=== PATIENT | female | born 1980 | race Caucasian/White ===

== ENCOUNTER 2018-11-27 19:12 | Emergency (ER) | payer BC ==
[~2018-11-27] VITALS: Ht 160 cm; Wt 74.8 kg
[2018-11-27 20:00] VITALS: BP 157/115
[2018-11-27] MEDS ORDERED: DIPHTH,PERTUSS(ACELL),TET TOX 0.5 ML DISP.SYRIN. VAX IM ONE (20:45)
[2018-11-27] MEDS ORDERED: LIDOCAINE WITH 8.4% SOD BICARB 3 ML DISP.SYRIN. ONE (20:45)
--- NOTE | 2018-11-27 21:18 | RAD ---
EXAM: Left index finger, 3 views. HISTORY: Laceration. COMPARISON: None. FINDINGS: 3 views of the left index finger are obtained. There is soft tissue swelling. There is no radiodense foreign body. No fracture is seen. IMPRESSION: No acute osseous finding or radiodense foreign body. Electronically signed by: Selina Belle MD (11/27/2018 9:15 PM) [facility]
[2018-11-27] MEDS ORDERED: HYDR-3164 PO (21:46)
--- NOTE | 2018-11-27 21:46 | PHYS DOC ---
Past Medical History Past Medical History: No Pertinent History (CELESTE AGUILERA) Past Surgical History: Hysterectomy (CELESTE AGUILERA) Alcohol Use: None Drug Use: None (CELESTE AGUILERA) Adult General Chief Complaint Chief Complaint: LACERATION/AVULSION HPI HPI Patient is a 38 year old F who is here with a L index finger laceration from an electric ang she was using at home. The finger is wrapped in a papertowel and bleeding is controlled. Pt is not sure when her last tetanus was administered. (CELESTE AGUILERA) Review of Systems Review of Systems Constitutional: Denies fever or chills [] Respiratory: Denies cough or shortness of breath [] Cardiovascular: Denies chest pain GI: Denies abdominal pain, nausea, vomiting, bloody stools or diarrhea [] Musculoskeletal: Denies back pain or joint pain. Reports finger pain. Integument: Denies rash. Reports laceration Neurologic: Denies headache, focal weakness or sensory change All other systems were reviewed and found to be within normal limits, except as documented in this note. (CELESTE AGUILERA) Current Medications Current Medications Current Medications Medications (Trade) Dose Ordered Sig/Missy Start Time Stop Time Status Last Admin Dose Admin Diphtheria/ Tetanus/Acell Pertussis (Boostrix) 0.5 ml ONCE ONCE 11/27/18 20:45 11/27/18 20:47 DC 11/27/18 21:05 0.5 ML Lidocaine/Sodium Bicarbonate (Buffered Lidocaine 1%) 3 ml STK-MED ONCE 11/27/18 20:45 11/27/18 20:46 DC (YANIV PALMER DO) Allergies Allergies Allergies Coded Allergies Type Severity Reaction Last Updated Verified cefaclor Allergy Intermediate Rash 11/27/18 Yes (YANIV PALMER DO) Physical Exam Physical Exam Constitutional: Well developed, well nourished, no acute distress, non-toxic appearance. [] Neck: Normal range of motion, no tenderness, supple, no stridor. [] Cardiovascular:Heart rate regular rhythm, no murmur [] Lungs & Thorax: Bilateral breath sounds clear to auscultation [] Abdomen: Bowel sounds normal, soft, no tenderness, no masses, no pulsatile masses. [] Skin: L index finger palmar side laceration, 3 cm Back: No tenderness, no CVA tenderness. [] Extremities: No cyanosis, no clubbing, ROM intact, no edema. L index finger pain, full range of motion, sensation intact. Neurologic: Alert and oriented X 3, normal motor function, normal sensory function, no focal deficits noted. [] Psychologic: Affect normal, judgement normal, mood normal. [] (CELESTE AGUILERA) Current Patient Data Vital Signs Vital Signs Date Time Temp Pulse Resp B/P (MAP) Pulse Ox O2 Delivery O2 Flow Rate FiO2 11/27/18 20:00 97.7 110 20 157/115 (129) 100 Room Air 97.7 (YANIV PALMER DO) EKG EKG [] (CELESTE AGUILERA) Radiology/Procedures Radiology/Procedures Xray neg for acute osseous injury or FB (CELESTE AGUILERA) Course & Med Decision Making Course & Med Decision Making Pertinent Labs and Imaging studies reviewed. (See chart for details) Pt tolerated suture repair well. Finger then dressed with nonstick dressing and alumifoam splint with coban wrap. Tetanus updated. Sutures out in 7-10 days. (CELESTE AGUILERA) Dragon Disclaimer Dragon Disclaimer This electronic medical record was generated, in whole or in part, using a voice recognition dictation system. (CELESTE AGUILERA) Laceration Repair Lac Repair Indication: L index finger laceration Procedure: The patient was placed in the appropriate position and anesthesia provided by 1% Lidocaine, 3 mls digital block. The area was then cleansed with shur clens and saline. The laceration was closed with 3 sutures of 5-0 nylon. The wound area was then dressed with nonstick dressing and coban. Total repaired wound length: 3 cm. Other Items: alumifoam splint applied The patient tolerated the procedure well. Complications: none (CELESTE AGUILERA) Departure Departure Impression: Primary Impression: Laceration of finger Additional Impression: Tetanus Disposition: 01 HOME, SELF-CARE Condition: IMPROVED Referrals: SHARRI KEATING MD (PCP) Patient Instructions: Diphtheria Toxoid; Tetanus Toxoid Adsorbed, DT, Td, Laceration Care, Adult, [id number] Additional Instructions: Keep wound clean and dry for 24 hours, you can then wash it gently daily but do not submerge in pool, tub, etc. Stitches out in 7-10 days. Scripts Hydrocodone/Apap 5-325 (NORCO 5-325 TABLET) 1 Each Tablet 1-2 TAB PO Q4-6HRS PRN for PAIN, #12 TAB Prov: CELESTE AGUILERA 11/27/18 Attending Signature Attending Signature I have reviewed the PA/POUCH MAKER's note and plan of care. I was available for consultation as needed during the patient's visit in the emergency department. I agree with the clinical impression, plan, and disposition. (YANIV PALMER DO) Problem Qualifiers CELESTE AGUILERA November 27, 2018 21:46 YANIV PALMER DO November 29, 2018 08:34
== END 2018-11-27 22:01 | disposition home or self-care (01) ==
LOC: ER 19:12
DX: S61.211A Laceration without foreign body of left index finger without damage to nail, initial encounter (principal); Z90.710 Acquired absence of both cervix and uterus; Z88.1 Allergy status to other antibiotic agents; W31.2XXA Contact with powered woodworking and forming machines, initial encounter; Y93.89 Activity, other specified; Y92.009 Unspecified place in unspecified non-institutional (private) residence as the place of occurrence of the external cause; Y99.8 Other external cause status
CPT/HCPCS: 12002; 73140; 90471; 90715; 99284